=== PATIENT | male | born 1985 | race Caucasian/White ===

== ENCOUNTER 2017-07-30 16:11 | Emergency (ER) | payer SELFPAY ==
[2017-07-30] MEDS ORDERED: Ketorolac 60 MG/2 ML SDV IM ONE (16:52)
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
--- NOTE | 2017-08-01 09:13 | CR ---
Lumbar Spine Bend Only Min 4V INDICATION: fall, trauma COMPARISON: None FINDINGS: 3 views. 5 lumbar-type vertebra. Minimal superior endplate depression at L1. No other compression deformities seen in the lumbar spine. Slight superior endplate compression T12 a s well. Disc spaces are fairly well preserved. 4 mm anterolisthesis L5 on S1. Definite pars defects not seen.
== END 2017-07-30 17:45 ==
LOC: JP.ED 16:11
DX: S39.92XA Unspecified injury of lower back, initial encounter (principal); F17.210 Nicotine dependence, cigarettes, uncomplicated; Y35.93XA Legal intervention, means unspecified, suspect injured, initial encounter
CPT/HCPCS: 72120; 96372; 99283; 99284; J1885